=== PATIENT | male | born 1985 | race Two or more races ===

== ENCOUNTER 2017-11-28 19:34 | Emergency (ER) | payer SELFPAY ==
[~2017-11-28] VITALS: Ht 165.1 cm; Wt 68.0 kg
[2017-11-28] MEDS ORDERED: NKM (19:43)
[2017-11-28 19:46] VITALS: BP 132/82
[2017-11-28] MEDS ORDERED: AMOXICILLIN500 MG ORAL (20:05)
[2017-11-28] MEDS ORDERED: FLONASE ALLERG9.9 ML NS (20:05)
[2017-11-28 20:18] VITALS: BP 132/82
--- NOTE | 2017-11-29 13:34 | Emergency Room Report ---
History of Present Illness General Chief Complaint: Flu Like Symptoms Source: Patient Present Illness HPI 32-year-old male presents ED for evaluation. States he has trouble breathing from his nose. Also complaining of flulike symptoms for the last month. States his left nostril feels clogged. Feels congested with sinus pressure. Denies any sore throat or earache. States he feels feverish. Afebrile at triage. Denies sick contacts recent travel. No other aggravating relieving factors. Denies any other associated symptoms Allergies: Coded Allergies: No Known Allergies (Unverified , 11/28/17) Patient History Past Medical History: none Past Surgical History: none Pertinent Family History: none Social History: Denies: smoking, alcohol use, drug use Immunizations: UTD Reviewed Nursing Documentation: PMH: Agreed, PSxH: Agreed Nursing Documentation-PMH Past Medical History: No Stated History Review of Systems All Other Systems: negative except mentioned in HPI Physical Exam Vital Signs Date Time Temp Pulse Resp B/P (MAP) Pulse Ox O2 Delivery O2 Flow Rate FiO2 11/28/17 19:38 98.8 98 16 132/82 95 Room Air 11/28/17 19:46 95 Sp02 EP Interpretation: reviewed, normal General Appearance: no apparent distress, alert, GCS 15, non-toxic Head: normocephalic, atraumatic Eyes: bilateral eye normal inspection, bilateral eye PERRL ENT: hearing grossly normal, normal pharynx, no angioedema, normal voice, TMs + canals normal, other - narrow nasal turbinates Neck: full range of motion, supple/symm/no masses Respiratory: chest non-tender, lungs clear, normal breath sounds, speaking full sentences Cardiovascular #1: regular rate, rhythm, no edema Cardiovascular #2: 2+ carotid (R), 2+ carotid (L), 2+ radial (R), 2+ radial (L) , 2+ dorsalis pedis (R), 2+ dorsalis pedis (L) Gastrointestinal: normal bowel sounds, non tender, soft, non-distended, no guarding, no rebound Rectal: deferred Genitourinary: normal inspection, no CVA tenderness Musculoskeletal: back normal, gait/station normal, normal range of motion, non- tender Neurologic: alert, oriented x3, responsive, motor strength/tone normal, sensory intact, speech normal Psychiatric: judgement/insight normal, memory normal, mood/affect normal, no suicidal/homicidal ideation Reflexes: 3+ bicep (R), 3+ bicep (L), 3+ tricep (R), 3+ tricep (L), 3+ knee (R) , 3+ knee (L) Skin: normal color, no rash, warm/dry, well hydrated Lymphatic: no adenopathy Medical Decision Making Diagnostic Impression: Primary Impression: Sinusitis Qualified Codes: J01.10 - Acute frontal sinusitis, unspecified ER Course Hospital Course 32-year-old M presents to ED complaining of nasal congestion. bodyaches, chills x 1 month Differential diagnoses include: URI, pharyngitis, otitis media, asthma Clinical course Patient placed on stretcher. After initial history, physical exam reveals a young male in no acute distress. Bilateral TM unremarkable. No pharyngeal erythema. No tonsillar exudates. narrow nasal turbinates. No lymphadenopathy. lungs clear. abdomen soft. Clinical findings consistent with sinusitits. Given one month course we will prescribe antibiotics. Recommend Flonase Diagnosis - sinusitits Stable and discharged home with prescriptions for Flonase, Amoxicillin. Instructed to followup with PMD. Return to ED if symptoms recur or worsen Last Vital Signs Date Time Temp Pulse Resp B/P (MAP) Pulse Ox O2 Delivery O2 Flow Rate FiO2 11/28/17 20:18 98.8 98 16 132/82 95 Room Air 95 Status: improved Disposition: HOME, SELF-CARE Condition: Stable Scripts Amoxicillin* (AMOXIL*) 500 Mg Capsule 500 MG ORAL THREE TIMES A DAY, #21 CAP Prov: LIAN PAK M.D. 11/28/17 Fluticasone Propionate (Flonase Allergy Relief) 9.9 Ml [place].susp 9.9 ML NS BID for 10 Days, #9.9 ML Prov: LIAN PAK M.D. 11/28/17 Referrals: NOT CHOSEN IPA/,REFERRING (PCP) Patient Instructions: Sinusitis, Adult, [id number] LIAN PAK M.D. Nov 29, 2017 13:34
== END 2017-11-28 20:18 | disposition home or self-care (01) ==
LOC: EMR 20:00
DX: J32.9 Chronic sinusitis, unspecified (principal)
CPT/HCPCS: 99283